=== PATIENT | female | born 1990 | race Caucasian/White ===

== ENCOUNTER 2016-05-23 21:57 | Emergency (ER) | payer BC ==
--- NOTE | 2016-05-23 22:06 | Emergency Department Record ---
History of Present Illness - General Chief complaint: ENT Stated complaint: CONGESTION,SORE THROAT,VALERIE Time Seen by Provider: 05/23/16 22:05 Source: Patient Mode of Arrival: Ambulatory Limitations: No limitations - History of Present Illness Initial comments: The patient is here due to a 10 hour hx of a mild cough, nasal congestion, and a mild ST. She denies any sputum, fever, chills, CP, SOB or ear pain. The patient works as a home health aid and is concerned she may be getting a cold. She also would like her urine checked to make sure her UTI is gone from 2 weeks ago. complaint: Sore throat, Other Onset/Timin -: Hour(s) Severity: Mild Severity scale (1-10): 7 Quality: Other Consistency: Other Improves with: Other Worsens with: None Context-Epistaxis: Other Associated Symptoms: Cough, Sore throat - Related Data Home Medications Medication Instructions Recorded Confirmed Last Taken Dextroamphetamine/Amphetamine 20 mg PO DAILY 05/23/16 05/23/16 Unknown [Adderall] Dextroamphetamine/Amphetamine 40 mg PO QAM 05/23/16 05/23/16 Unknown [Adderall] Phentermine HCl 37.5 mg PO DAILY 05/23/16 05/23/16 Unknown Previous Rx's Medication Instructions Recorded Fluticasone Propionate [Flonase] 2 spray EACH NARES DAILY #1 bottle 05/23/16 Prednisone [Prednisone 20Mg] 40 mg PO DAILY #8 tab 05/23/16 Allergies Allergy/AdvReac Type Severity Reaction Status Date / Time No Known Drug Allergies Allergy Verified 05/23/16 22:06 Travel Screening - Travel/Exposure Within Last 30 Days Have you traveled within the last 30 days?: No - Travel/Exposure Within Last Year Have you traveled outside the [place] in the last year?: No - Additonal Travel Details Have you been exposed to anyone with a communicable illness?: No - Travel Symptoms Symptom Screening: None Review of Systems Constitutional: Denies: Chills, Fever Eyes: Denies: Eye discharge ENT: Reports: Congestion Respiratory: Reports: Cough. Denies: Dyspnea Past Medical History - SOCIAL HISTORY Smoking Status: Current every day smoker Alcohol Use: None Drug Use: None - RESPIRATORY Hx Respiratory Disorders: No - CARDIOVASCULAR Hx Cardio Disorders: No - NEURO Hx Neuro Disorders: No - GI Hx GI Disorders: No - Hx Genitourinary Disorders: No - ENDOCRINE Hx Endocrine Disorders: No - MUSCULOSKELETAL Hx Musculoskeletal Disorders: No - PSYCH Hx Psych Problems: No - HEMATOLOGY/ONCOLOGY Hx Hematology/Oncology Disorders: No Family Medical History Any Significant Family History?: No Physical Exam - General General Appearance: Alert, Oriented x3, Cooperative, No acute distress - Head Head exam: Atraumatic, Normocephalic, Normal inspection - Eye Eye exam: Normal appearance, PERRL, EOMI - ENT ENT exam: TM's normal bilaterally. negative: Normal exam, Normal orophraynx Teeth exam: negative: Gingival enlargement Throat exam: Tonsillar erythema (very mild.). negative: Normal inspection, Tonsillomegaly, Tonsillar exudate, R peritonsillar mass, L peritonsillar mass - Neck Neck exam: Normal inspection, Full ROM. negative: Lymphadenopathy, Tenderness - Respiratory Respiratory exam: Normal lung sounds bilaterally. negative: Decreased breath sounds, Respiratory distress, Rhonchi, Stridor, Wheezes - Cardiovascular Cardiovascular Exam: Regular rate, Normal rhythm, Normal heart sounds - Extremities Extremities exam: Normal inspection, Full ROM, Normal capillary refill. negative: Tenderness Course Vital Signs 05/23/16 21:59 Temperature 98.4 F Pulse Rate 71 Respiratory 20 Rate Blood Pressure 129/77 Pulse Ox 96 - Reevaluation(s) Reevaluation #1: The patient is doing very well at this time. I did explain to her that it appears she is developing a viral URI. Her UA looks very good so we will discharge her to home. 05/23/16 22:30 Disposition Disposition: Discharge Clinical Impression: Viral upper respiratory tract infection with cough Disposition: Home, Self-Care Condition: (1) Good Instructions: Upper Respiratory Infection, Field Technical Specialist (GEN) Additional Instructions: Please continue your home PRoAir inhaller 4 times a day and use the Flonase and Prednisone as directed. Please use an OTC cold and cough medicine if needed. Please see your PCP if not better and return to the ER for any worsening cough, or any VALERIE or fever. Prescriptions: Fluticasone Propionate [Flonase] 2 spray EACH NARES DAILY #1 bottle Prednisone [Prednisone 20Mg] 40 mg PO DAILY #8 tab Forms: Patient Portal Access Time of Disposition: 22:34
[2016-05-23 22:19] LABS: URINE APPEARANCE CLEAR; URINE BILIRUBIN NEGATIVE (NEGATIVE); URINE BLOOD SMALL (NEGATIVE); URINE COLOR YELLOW; URINE GLUCOSE (UA) NEGATIVE (NEGATIVE); URINE KETONE NEGATIVE (NEGATIVE); URINE LEUKOCYTE ESTERASE NEGATIVE (NEGATIVE); URINE NITRITE NEGATIVE (NEGATIVE); URINE PROTEIN NEGATIVE (NEGATIVE); URINE UROBILINOGEN 0.2 E.U./dL (0.20 - 1.00)
[2016-05-23 22:22] LABS: HCG,QUALITATIVE URINE NEGATIVE (NEGATIVE)
[2016-05-23] MEDS ORDERED: PREDNISONE 20 MG TAB PO ONE (22:28)
[2016-05-23 22:33] LABS: URINE WBC 0 - 2 (0-2/hpf)
== END 2016-05-23 22:41 | disposition home or self-care (01) ==
LOC: ER 21:57
DX: J06.9 Acute upper respiratory infection, unspecified (principal); R05 Cough; J02.9 Acute pharyngitis, unspecified
CPT/HCPCS: 81001; 81025; 99282; J7512

== ENCOUNTER 2016-06-19 14:56 | Emergency (ER) | payer BC ==
--- NOTE | 2016-06-19 15:22 | Emergency Department Record ---
History of Present Illness - General Chief Complaint: Abdominal Pain Stated Complaint: PELVIC/ABD PAIN Time Seen by Provider: 06/19/16 15:15 Source: Patient Mode of Arrival: Ambulatory Limitations: No limitations - History of Present Illness Initial Comments: 26 yo female presents to ED with a CC of lower abdominal pain and pelvic pain for the past 2 days. Patient reports that she is (approximately 8 weeks ), describes her pain symptoms as "cramping". Patient also reports dysuria symptoms and "mucus" from the vagina. Patient denies health problems at her baseline. MD Complaint: Abdominal pain Onset/Timin -: Days(s) Location: Suprapubic Radiation: Back Severity: Moderate Quality: Aching Consistency: Constant Improves With: Nothing Worsens With: Nothing Associated Symptoms: Denies other symptoms - Related Data LMP Date: 05/04/16 Patient : Yes Home Medications Medication Instructions Recorded Confirmed Last Taken Dextroamphetamine/Amphetamine 20 mg PO DAILY 05/23/16 06/19/16 Unknown [Adderall] Dextroamphetamine/Amphetamine 40 mg PO QAM 05/23/16 06/19/16 Unknown [Adderall] Allergies Allergy/AdvReac Type Severity Reaction Status Date / Time No Known Drug Allergies Allergy Verified 06/19/16 15:07 Travel Screening - Travel/Exposure Within Last 30 Days Have you traveled within the last 30 days?: No Review of Systems Constitutional: Denies: Chills, Fever, Malaise, Night sweats Eyes: Denies: Eye discharge, Eye pain ENT: Denies: Congestion, Ear pain, Epistaxis Respiratory: Denies: Cough, Dyspnea Cardiovascular: Denies: Chest pain, Dyspnea on exertion Endocrine: Denies: Fatigue, Heat or cold intolerance Gastrointestinal: Reports: Abdominal pain. Denies: Nausea, Vomiting Genitourinary: Reports: Dysuria, Frequency. Denies: Hematuria, Incontinence Musculoskeletal: Denies: Arthralgia, Back pain, Gout, Joint swelling Skin: Denies: Bruising, Change in color Neurological: Denies: Abnormal gait, Confusion, Headache, Seizure Psychiatric: Denies: Anxiety Hematological/Lymphatic: Denies: Anemia, Blood Clots Past Medical History - SOCIAL HISTORY Smoking Status: Current every day smoker Alcohol Use: None Drug Use: None - RESPIRATORY Hx Respiratory Disorders: No - CARDIOVASCULAR Hx Cardio Disorders: No - NEURO Hx Neuro Disorders: No - GI Hx GI Disorders: No - Hx Genitourinary Disorders: No - ENDOCRINE Hx Endocrine Disorders: No - MUSCULOSKELETAL Hx Musculoskeletal Disorders: No - PSYCH Hx Psych Problems: No - HEMATOLOGY/ONCOLOGY Hx Hematology/Oncology Disorders: No Family Medical History Any Significant Family History?: No Physical Exam - General General Appearance: Alert, Oriented x3, Cooperative, No acute distress Limitations: No limitations - Head Head exam: Atraumatic, Normocephalic, Normal inspection Head exam detail: negative: Abrasion, Contusion, Zhang's sign, General tenderness, Hematoma, Laceration - Eye Eye exam: Normal appearance. negative: Conjunctival injection, Periorbital swelling, Periorbital tenderness, Scleral icterus - ENT Ear exam: negative: Auricular hematoma, Auricular trauma Nasal Exam: negative: Active bleeding, Discharge, Dried blood, Foreign body Mouth exam: negative: Drooling, Laceration, Muffled voice, Tongue elevation - Neck Neck exam: Normal inspection. negative: Meningismus, Tenderness - Respiratory Respiratory exam: Normal lung sounds bilaterally. negative: Rales, Respiratory distress, Rhonchi, Stridor - Cardiovascular Cardiovascular Exam: Regular rate, Normal rhythm, Normal heart sounds - GI/Abdominal GI/Abdominal exam: Soft. negative: Rebound, Rigid, Tenderness - Rectal Rectal exam: Deferred - exam: Normal speculum exam. negative: Vaginal bleeding, Vaginal discharge, Vaginal erythema - Extremities Extremities exam: Normal inspection. negative: Calf tenderness, Pedal edema, Tenderness - Back Back exam: Denies: CVA tenderness (R), CVA tenderness (L) - Neurological Neurological exam: Alert, Normal gait, Oriented X3 - Psychiatric Psychiatric exam: Normal affect, Normal mood - Skin Skin exam: Normal color. negative: Abrasion Type of lesion: negative: abrasion Course Vital Signs 06/19/16 15:02 Temperature 98.1 F Pulse Rate 85 Respiratory 20 Rate Blood Pressure 125/87 Pulse Ox 99 - Reevaluation(s) Reevaluation #1: 06/19/16 15:59 Labs reviewed, UA appears normal except for 10-15 RBCs, wet prep negative, labs are otherwise negative for an acute process. HCG pending. Reevaluation #2: 06/19/16 16:22 HCG resulted at 72. Patient is currently in US for evaluation of her symptoms. Reevaluation #3: 06/19/16 17:22 US Pelvis: 0.2 cm echoic mass lower endometrium, 2.1 cm complex cystic structure left ovary felt to represent corpus luteum, no adenxal mass or FF, good flow bilaterally. Patient updated on all results, has been outside to smoke and is well appearing on examination. Patient appears stable for discharge with instructions for repeat B-HCG in 48 hours. Medical Decision Making - Lab Data Result diagrams: 06/19/16 15:30 06/19/16 15:30 Disposition Disposition: Discharge Clinical Impression: Abdominal pain affecting Disposition: Home, Self-Care Condition: (2) Stable Instructions: Abdominal Pain in (ED) Additional Instructions: Return to ED if your symptoms worsen or if you have any concerns. Repeat B-HCG in 48 hours (Rx given). Follow-up with [facility] next week, call for appointment in 1-3 days. Forms: Patient Portal Access Time of Disposition: 17:25
[2016-06-19 15:35] LABS: URINE APPEARANCE SL CLOUDY; URINE BILIRUBIN SMALL (NEGATIVE); URINE BLOOD LARGE (NEGATIVE); URINE COLOR YELLOW; URINE GLUCOSE (UA) NEGATIVE (NEGATIVE); URINE KETONE NEGATIVE (NEGATIVE); URINE LEUKOCYTE ESTERASE NEGATIVE (NEGATIVE); URINE NITRITE NEGATIVE (NEGATIVE)
[2016-06-19 15:37] LABS: HEMATOCRIT 42.2 % (35.0-47.0); HEMOGLOBIN 13.7 gm/dl (11.6-16.0); MEAN CORPUSCULAR HEMOGLOBIN 28.2 pg (27-33); MEAN CORPUSCULAR HGB CONC 32.5 g/dl (32-36); MEAN PLATELET VOLUME 12.1 fl (7.4-10.4); PLATELET COUNT 224 K/uL (130-400); RED BLOOD COUNT 4.85 M/uL (3.80-5.40); RED CELL DISTRIBUTION WIDTH 13.9 % (11.5-14.5)
[2016-06-19 15:43] LABS: URINE BACTERIA NONE SEEN; URINE WBC NONE SEEN (0-2/hpf)
[2016-06-19 15:46] LABS: ALB/GLOB RATIO 1.5 (1.1-1.8); ALBUMIN 4.7 gm/dL (3.5-5.0); ALKALINE PHOSPHATASE 63 U/L (38-126); ALT/SGPT 43 U/L (9-52); ANION GAP 10.7 (7-16); AST/SGOT 26 U/L (14-36); BILIRUBIN,TOTAL 0.51 mg/dL (0.2-1.3); BLOOD UREA NITROGEN 8 mg/dL (7-17); CARBON DIOXIDE 25.3 mmol/L (22-30); CREATININE 0.7 mg/dL (0.52-1.04); EST GLOMERULAR FILTRATION RATE > 60 ml/min; GLUCOSE,RANDOM 93 mg/dL (70-110); TOTAL PROTEIN 7.9 gm/dL (6.3-8.2)
[2016-06-19 15:48] LABS: PLATELET ESTIMATE NORMAL (NORMAL)
[2016-06-19 16:03] LABS: TOTAL B-hCG 72.57 mIU/mL
[2016-06-22 15:42] LABS: GC SPECIMEN TYPE Cervix (())
== END 2016-06-19 17:38 | disposition home or self-care (01) ==
LOC: ER 14:56
DX: O34.81 Maternal care for other abnormalities of pelvic organs, first trimester (principal); N83.12 Corpus luteum cyst of left ovary; R30.0 Dysuria; Z3A.08 8 weeks gestation of pregnancy
CPT/HCPCS: 76801; 76817; 80053; 81001; 84702; 85027; 87210; 99284

== ENCOUNTER 2017-09-12 17:30 | Emergency (ER) | payer BC ==
--- NOTE | 2017-09-12 18:47 | Emergency Department Record ---
History of Present Illness - General Stated Complaint: FEVER,CHEST CONGESTION,BODY ACHES Time Seen by Provider: 09/12/17 18:45 Source: Patient Mode of Arrival: Ambulatory Limitations: No limitations - History of Present Illness Initial Comments: 27 yo female presents to ED for evaluation of nonproductive cough and congestion symptoms for the pat 3-4 days, patient reports "I think i have bronchitis". Patient denies fevers, chills, or previous lung problems. Patient does reports history of similar symptoms previously diagnosed as bronchitis several years ago. Patient denies sore throat, ear pain, or chest pain symptoms. Patient denies health problems at her baseline. MD Complaint: Cough Onset/Timin -: Days(s) Severity: Moderate Consistency: Intermittent Improves With: Nothing Worsens With: Deep breaths Associated Symptoms: Denies other symptoms Treatments Prior to Arrival: None - Related Data Previous Rx's Medication Instructions Recorded Azithromycin [Zithromax] 250 mg PO DAILY #6 tablet 09/12/17 Prednisone [Prednisone 20Mg] 20 mg PO BID #10 tab 09/12/17 Allergies Allergy/AdvReac Type Severity Reaction Status Date / Time No Known Drug Allergies Allergy Verified 06/19/16 15:07 Review of Systems Constitutional: Reports: Malaise. Denies: Chills, Fever, Night sweats Eyes: Denies: Eye discharge, Eye pain ENT: Reports: Congestion. Denies: Ear pain, Epistaxis Respiratory: Reports: Cough. Denies: Dyspnea Cardiovascular: Denies: Chest pain, Edema Endocrine: Reports: Fatigue. Denies: Heat or cold intolerance Gastrointestinal: Denies: Nausea, Vomiting Genitourinary: Denies: Incontinence, Retention Musculoskeletal: Denies: Arthralgia, Back pain Skin: Denies: Bruising, Change in color Neurological: Denies: Abnormal gait, Confusion, Headache Psychiatric: Denies: Anxiety Hematological/Lymphatic: Denies: Anemia, Blood Clots Past Medical History - SOCIAL HISTORY Smoking Status: Current every day smoker Drug Use: None - RESPIRATORY Hx Respiratory Disorders: No - CARDIOVASCULAR Hx Cardio Disorders: No - NEURO Hx Neuro Disorders: No - GI Hx GI Disorders: No - Hx Genitourinary Disorders: No - ENDOCRINE Hx Endocrine Disorders: No - MUSCULOSKELETAL Hx Musculoskeletal Disorders: No - PSYCH Hx Psych Problems: No - HEMATOLOGY/ONCOLOGY Hx Hematology/Oncology Disorders: No Physical Exam - General General Appearance: Alert, Oriented x3, Cooperative, No acute distress Limitations: No limitations - Head Head exam: Atraumatic, Normocephalic, Normal inspection Head exam detail: negative: Abrasion, Contusion, Zhang's sign, General tenderness, Hematoma, Laceration - Eye Eye exam: Normal appearance. negative: Conjunctival injection, Periorbital swelling, Periorbital tenderness, Scleral icterus - ENT Ear exam: negative: Auricular hematoma, Auricular trauma Nasal Exam: negative: Active bleeding, Discharge, Dried blood, Foreign body Mouth exam: negative: Drooling, Laceration, Muffled voice, Tongue elevation - Neck Neck exam: Normal inspection. negative: Meningismus, Tenderness - Respiratory Respiratory exam: Wheezes (Very mild wheezes present throughout all 4 lung mae.). negative: Respiratory distress, Rhonchi, Stridor - Cardiovascular Cardiovascular Exam: Regular rate, Normal rhythm, Normal heart sounds - GI/Abdominal GI/Abdominal exam: Soft. negative: Rebound, Rigid, Tenderness - Rectal Rectal exam: Deferred - exam: Deferred - Extremities Extremities exam: Normal inspection. negative: Pedal edema, Tenderness - Back Back exam: Denies: CVA tenderness (R), CVA tenderness (L) - Neurological Neurological exam: Alert, Normal gait, Oriented X3 - Psychiatric Psychiatric exam: Normal affect, Normal mood - Skin Skin exam: Normal color. negative: Abrasion Type of lesion: negative: abrasion Course - Reevaluation(s) Reevaluation #1: 09/12/17 18:52 Patient was seen and examined, symptoms appear c/w bronchitis. Will treat with Zithromax and Prednisone as directed with instructions to follow-up with her PCP in 3-5 days as directed. Disposition Disposition: Discharge Clinical Impression: Bronchitis Disposition: Home, Self-Care Condition: (2) Stable Instructions: Acute Bronchitis (ED) Additional Instructions: Return to ED if your symptoms worsen or if you have any concerns. Zithromax and Prednisone as directed. Follow-up with your family doctor in 3-5 days as directed. Prescriptions: Azithromycin [Zithromax] 250 mg PO DAILY #6 tablet Prednisone [Prednisone 20Mg] 20 mg PO BID #10 tab Forms: Patient Portal Access Time of Disposition: 18:47 Quality - Quality Measures Quality Measures: N/A - Blood Pressure Screening Does Patient Have Any of the Following: No Blood Pressure Classification: Pre-Hypertensive BP Reading Systolic Measurement: 122 Diastolic Measurement: 71 Screening for High Blood Pressure: < Pre-Hypertensive BP, F/U Documented > [ [id number]] Pre-Hypertensive Follow-up Interventions: Referral to alternative/primary care provider.
== END 2017-09-12 19:08 | disposition home or self-care (01) ==
LOC: ER 17:30
DX: J20.9 Acute bronchitis, unspecified (principal); F17.210 Nicotine dependence, cigarettes, uncomplicated
CPT/HCPCS: 99282